=== PATIENT | male | born 1945 | race African-American/Black ===

== ENCOUNTER 2021-09-21 14:25 | Outpatient (CLI) | payer MEDICARE ==
[2021-09-21 15:17] LABS: #Eosinphils 0.5 10x3/uL (0.0-0.5); #Monocytes 0.8 10x3/uL (0.0-1.1); #Neutrophils 3.3 10x3/uL (1.5-8.4); %Basophils 0.4 % (0.0-2.0); %Eosinophils 7.8 % (0.0-6.0); %Monocytes 11.4 % (0.0-10.0); %Neutrophils 47.1 % (40.0-75.0); Mean Corpuscular Hemoglobin 29.9 pg (27.0-33.0); Mean Corpuscular Volume 85.3 fl (81.2-95.1); Mean Platelet Volume 10.1 fl (7.4-10.4); Platelet Count 303 10x3/uL (150-450); Red Blood Cell (RBC) Count 5.02 10x6/uL (4.32-5.72)
[2021-09-21 15:25] LABS: Bilirubin Neg (Negative); Blood, Urine Negative (Negative); Clarity Clear (Clear); Glucose, Urine (Dipstick) 50 mg/dL (Negative); Ketone, Urine Negative (Negative); Leukocyte 25 (Negative); Nitrite Negative (Negative); Protein, Urine (Dipstick) 15 mg/dl (Neg-Trace); Urobilinogen Normal mg/dL (Less than 2)
== END 2021-09-21 14:26 | disposition home or self-care (01) ==
LOC: LABBT 14:25
PROVIDERS: ATTEND Orthopaedic Surgery Hand Surgery
DX: Z01.818 Encounter for other preprocedural examination (principal)
CPT/HCPCS: 81003; 85025; 87811; 93005; 93010

== ENCOUNTER 2021-09-24 05:39 | Day surgery (SDC) | payer MEDICARE ==
[2021-09-22 15:00] VITALS: BMI 36.5
[2021-09-24] MEDS ORDERED: Thrombin 5000 UNITS/5 ML VIAL ONE (06:13)
[2021-09-24] MEDS ORDERED: Bupivacaine PF 0.5% 30 ML VIAL ONE (06:13)
[2021-09-24] MEDS ORDERED: Neomycin-Polymyxin 1 ML AMP ONE (06:13)
[2021-09-24] MEDS ORDERED: Bacitracin Zinc Ointment 30 gm TUBE ONE (06:13)
[2021-09-24] MEDS ORDERED: EPINEPHrine 1 MG/ML AMP ONE (06:13)
[2021-09-24] MEDS ORDERED: Midazolam HCl 2 mg/2 ml Vial ONE (06:57)
[2021-09-24] MEDS ORDERED: Fentanyl 100 MCG/2 ML VIAL ONE ×2 (06:57→15:53)
[2021-09-24] MEDS ORDERED: Lidocaine 1% (PF) 30 ML VIAL ONE (06:57)
[2021-09-24] MEDS ORDERED: Bupivacaine HCl 0.5%/Epinephrine 1:200,000/PF 30 ml Vial ONE (07:10)
[2021-09-24] MEDS ORDERED: Sodium Chloride 0.9% 100 ML ONE (07:21)
[2021-09-24] MEDS ORDERED: CEFAZOLIN 2 GM VIAL ONE (07:21)
[2021-09-24] MEDS ORDERED: PROPOFOL 200 MG/20 ML VIAL ONE (08:10)
[2021-09-24] MEDS ORDERED: Ondansetron PF 4 MG/2 ML Vial ONE (08:10)
[2021-09-24] MEDS ORDERED: Lidocaine 1% PF 5 ML VIAL ONE (08:10)
[2021-09-24] MEDS ORDERED: Ketorolac Tromethamine 30 MG/ML VIAL ONE (08:10)
[2021-09-24] MEDS ORDERED: ePHEDrine 50 MG/ML VIAL ONE (08:10)
[2021-09-24] MEDS ORDERED: Promethazine HCl 25 MG/ML VIAL IVPB PRN (14:43)
[2021-09-24] MEDS ORDERED: HYDROmorphone 2 MG/ML VIAL SLOW IVP PRN (14:43)
[2021-09-24] MEDS ORDERED: Ondansetron HCl/PF 4 MG/2 ML Vial IVP PRN (14:43)
[2021-09-24] MEDS ORDERED: Meperidine HCl/PF 25 MG/ML VIAL SLOW IVP PRN (14:43)
== END 2021-09-24 17:40 | disposition home or self-care (01) ==
LOC: SDC 05:39
PROVIDERS: ATTEND Orthopaedic Surgery Hand Surgery
PROC: 0MB54ZZ Excision of Right Wrist Bursa and Ligament, Percutaneous Endoscopic Approach (ICD-10-PCS; principal; 2021-09-24)
PROC: 0PBK0ZZ Excision of Right Ulna, Open Approach (ICD-10-PCS; 2021-09-24)
PROC: 0PHK04Z Insertion of Internal Fixation Device into Right Ulna, Open Approach (ICD-10-PCS; 2021-09-24)
PROC: 0PBH0ZZ Excision of Right Radius, Open Approach (ICD-10-PCS; 2021-09-24)
PROC: 0RGN07Z Fusion of Right Wrist Joint with Autologous Tissue Substitute, Open Approach (ICD-10-PCS; 2021-09-24)
PROC: 3E0T3BZ Introduction of Anesthetic Agent into Peripheral Nerves and Plexi, Percutaneous Approach (ICD-10-PCS; 2021-09-24)
DX: M19.131 Post-traumatic osteoarthritis, right wrist (principal); S63.591A Other specified sprain of right wrist, initial encounter; M25.831 Other specified joint disorders, right wrist; M65.88 Other synovitis and tenosynovitis, other site; I10 Essential (primary) hypertension; E11.9 Type 2 diabetes mellitus without complications; E78.00 Pure hypercholesterolemia, unspecified; Z87.891 Personal history of nicotine dependence; Z79.84 Long term (current) use of oral hypoglycemic drugs; Z79.899 Other long term (current) drug therapy
CPT/HCPCS: 25230; 25390; 25810; 29846; 64415; 73110; 76000; C1713 ×7; J0171; J0690; J1885; J2001; J2250; J2405; J2704; J3010; J3490; S0020